=== PATIENT | female | born 1960 | race Caucasian/White ===

== ENCOUNTER → 2018-04-26 | Outpatient (CLI) | payer OTHER | LOC: BRMIMAGING 13:08 | PROVIDERS: ATTEND Family Medicine | DX: Z12.31 Encounter for screening mammogram for malignant neoplasm of breast (principal) ==

== ENCOUNTER → 2018-05-08 | Outpatient (CLI) | payer OTHER | LOC: BRMIMAGING 10:15 | PROVIDERS: ATTEND Family Medicine | DX: N60.01 Solitary cyst of right breast (principal) | CPT/HCPCS: 76641-PO ==